=== PATIENT | female | born 1970 | race Caucasian/White ===

== ENCOUNTER 2023-10-31 22:02 | Inpatient (IN) | payer BC, SELFPAY ==
[2023-10-31 20:31] VITALS: BP 172/94
[2023-10-31 20:44] VITALS: BMI 40.4
[2023-10-31 20:49] LABS: % Basophils 0.6 % (0-2); % Immature Granulocytes 0.1 % (0-0.5); % Lymphocytes 29.8 % (20.5-51.1); % Neutrophils 62.5 % (42.2-75.2); Absolute Basophils 0.1 10^3/uL (0-0.2); Absolute Eosinophils 0.1 10^3/uL (0-0.7); Absolute Lymphocytes 2.3 10^3/uL (1.2-3.4); Absolute Monocytes 0.5 10^3/uL (0.1-0.6); Absolute Neutrophils 4.8 10^3/uL (1.4-6.5); Hematocrit 41.2 % (37.0-47.0); Hemoglobin 14.5 g/dL (12.0-16.0); Mean Corp Hgb Conc. 35.2 g/dL (33.0-37.0); Mean Corpuscular Hgb 29.7 pg (27.0-31.0); Mean Corpuscular Volume 84.3 fL (81.0-99.0); Mean Platelet Volume 11.1 fL (7.4-10.4); Nucleated Red Blood Cells % 0 %; Platelet Count 190 10^3/uL (130-400); Red Blood Cell Count 4.89 10^6/uL (4.20-5.40); Red Cell Dist. Width 13.8 % (11.5-14.5); White Blood Cell Count 7.7 10^3/uL (4.8-10.8)
--- NOTE | 2023-10-31 21:01 | ED.GENMED ---
History of Present Illness
General
Chief Complaint: Heart Rate Problem
Source: patient, records, spouse and family
Exam Limitations: none
Time Seen by Provider: 10/31/23 20:43
Nursing documentation reviewed up to this point in time: agreed with
Travel History
Have you had any contact with someone who has COVID-19?: No
Do you have any symptoms of coronavirus? Fever > 100 degrees, chills, cough, shortness of breath, sore throat, loss of taste or smell, muscle aches, or headache?: No
History of Present Illness
History of Present Illness:
Patient is a 53-year-old female with a history of V. tach and frequent PVCs during her stress test that led to a cardiac catheterization in May who presents with repeated episodes of feeling lightheaded and near syncopal with sitting up. This
started a few days ago and has gotten progressively worse. Patient feels fine when she is laying down. Patient denies any chest pain or shortness of breath. Patient becomes very diaphoretic. Patient denies any abdominal pain, nausea, vomiting,
diarrhea, melena or hematochezia. Patient had a cardiac catheterization constrain her echo is stress she had episodes of the above. Cardiac catheterization was unremarkable. Patient's EF is 60 to 65% by echocardiogram. It is theorized that this
started in February with a viral infection. Patient went on steroids but then had to come off of them and had issues after that time.
Past History
Past History
ED Past Medical History: Arrthythmia (Bigeminy, trigeminy, V. tach), Asthma and Other (breast ca)
ED Past Surgical History: Other (mastectomy bilateral)
Social History
Tobacco: Non-smoker
Alcohol: None
Personal:
Living: with family
Family History
Family History: Negative Diabetes or CAD
Review of Systems
Review of Systems
All Other Systems: ROS reviewed and negative except as documented in HPI and ROS
Constitutional: Reports no symptoms
EENT: Reports no symptoms
Respiratory: Reports no symptoms
Cardiac: Reports diaphoresis, palpitations and syncope (Near); Denies chest pain
ABD/GI: Reports no symptoms
: Reports no symptoms
Musculoskeletal: Reports no symptoms
Skin: Reports no symptoms
Neurological: Reports no symptoms
Hematologic/Lymphatic: Reports no symptoms
Phy Exam
Physical Exam
Physical Exam:
Physical Exam
General: No apparent distress, alert and appropriate, well nourished, well hydrated
HENT: Normocephalic, supple with no lymphadenopathy, no thyromegaly
Eyes: Clear sclera, conjuctiva without injection
Heart: Regular rhythm and bradycardic rate. No S3, S4. No murmur. No NVD
Lungs: No respiratory distress, no stridor, lung sounds clear and equal bilaterally
Abdomen: Soft, nontender, no organomegaly, BS good
Neuro: Alert and oriented x 3, CN II - XII intact, no motor focality
Skin: no rash
Psychiatric: well kept. interactive and cooperative
Extremities: No edema, cyanosis, tenderness, Good and equal peripheral pulses.
Scores
Heart Failure Risk
Heart Failure Risk Score: Not Applicable
Heart Score for Chest Pain Patients
STEMI patient?: Not applicable
Withdrawal Assessment of Alcohol
Withdrawal Assessment Completed?: Not applicable
Course
Orders/Labs/Results
Orders:
Orders
10/31/23 20:27
Electrocardiogram (*1) Urgent
Reason for Study: Syncope
EKG- Treatment ONCE
10/31/23 20:43
Cardiac Monitoring- Treatment ONCE
IV Insert/Care/Rem.- Treatment PRN
O2 Therapy [RESP] Urgent
Titrate/Wean O2 to maintain O2 sat greater than (%): 90
Special Instructions: Maintain sats >/=90%
Pulse Ox/spot Check [RESP] Urgent
Quantity: 1
Special Instructions: ON ROOM AIR
10/31/23 20:44
Complete Blood Count/With Diff Urgent
Comprehensive Metabolic Panel Urgent
TSH Reflex To Free T4 Urgent
Comment: ADDON
Troponin I Urgent
10/31/23 20:48
Add On- LAB Urgent
Tests Added?: TSH with reflex to t4
10/31/23 21:10
0.9% Sodium Chloride 1000 ml [Nss] 1,000 ml IV BOLUS
10/31/23 21:45
Admit/Transfer Patient As Directed
Co-Sign Provider:
Level of Care: Inpatient admission
Assign to:: IVU
Physician / Group: hospitalist
Diagnosis: symptomatic bradycardia
Reason for Hospitalization: symptomatic bradycardia
Expected length of stay greater than two midnights?: Yes
ELOS- Estimated Length of Stay in days: 3
I certify the patient meets the requirements for IP care: Yes
10/31/23 21:50
Code Status As Directed
Resuscitation Status: Full Code
Abnormal Lab Results
10/31/23
20:44
MPV 11.1 H fL
(7.4-10.4)
Chloride 109 H mmol/L
(98-107)
BUN 22 H mg/dl
(7-17)
Glucose 102 H mg/dl
(70-99)
10/31/23 20:44
10/31/23 20:44
Vital Signs
Initial and Last Documented VS:
Initial Vital Signs
Temp Pulse Resp BP Pulse Ox
98 F 64 18 172/94 98
10/31/23 20:31 10/31/23 20:31 10/31/23 20:31 10/31/23 20:31 10/31/23 20:31
Last Documented Vital Signs
Temp Pulse Resp BP Pulse Ox
98 F 64 18 172/94 98
10/31/23 20:31 10/31/23 20:31 10/31/23 20:31 10/31/23 20:31 10/31/23 20:31
*Radiology
Radiology exam reviewed: other (na)
*Pulse Oximetry
Patient hypoxic: no
*EKG
Interpreted by ED Provider?: Yes
EKG Intrepretation Date: 10/31/23
EKG Intrepretation Time: 21:08
Interpretation: abnormal
Comparison EKG: changes noted
Heart Rate: 54
Rate: bradycardiac
Rhythm: sinus
[place]: normal axis
Interval: normal interval
QRS Pattern: normal QRS
Ischemia: non-specific ST changes
*Sandblasting Supervisor Interpretation
Rate: bradycardiac
Interpretation: abnormal
Heart Rate: 52
Rhythm: sinus and PVC's
*Critical Care Note
Total Time (30-74mins, 75-104mins- exclusive of procedures): Not Applicable
ED Attending Note
-
Portions of this chart may have been created with voice recognition software.� Occasional wrong word or��sound alike� substitutions may have occurred due to the inherent limitations of voice recognition software.
Discharge Plan
Departure
Patient Disposition: Admit
Date of Disposition: 10/31/23
Time of Disposition: 21:09
Admit to: IVU
Admit to doctor: Hospitalist
Presentation/result/management discussed w/ accepting MD/DO: Making Department Preparer
Patient with high blood pressure during this ER visit?: No
Condition: Serious
Covid-19: Not Applicable
Discharge Problem:
Symptomatic bradycardia, Frequent PVCs
Interventions
Interventions:
*Risk Screen - Suicide Last Done: 10/31/23 20:54
*General Assessment Last Done: 10/31/23 20:47
*Neglect/Abuse Screening Last Done: 10/31/23 20:54
ED- Fall Risk Assessment Last Done: 10/31/23 20:54
*ED COVID-19 Vaccine History Last Done: 10/31/23 20:45
ED- Cardiac Assessment Last Done: 10/31/23 20:54
ED- Pulmonary Assessment Last Done: 10/31/23 20:54
[2023-10-31 21:04] LABS: ALT (SGPT) 22 U/L (0-35); AST (SGOT) 23 U/L (14-36); Albumin 4.5 g/dl (3.5-5.0); Alkaline Phosphatase 60 U/L (38-126); Blood Urea Nitrogen 22 mg/dl (7-17); Calcium 9.5 mg/dl (8.4-10.2); Carbon Dioxide 23 mmol/L (22-30); Chloride 109 mmol/L (98-107); Estimated Creatinine Clearance 112 ml/min; Glucose 102 mg/dl (70-99); Sodium 138 mmol/L (135-145); Total Bilirubin 0.6 mg/dl (0.2-1.3); Total Protein 7.1 g/dl (6.3-8.2); eGFR > 60.00
[2023-10-31 21:13] LABS: Troponin I < 0.012 ng/ml
--- NOTE | 2023-10-31 21:18 | CON.CAR ---
Consultation
Consultation Request
Date/Time Consultation Requested: October 31, 2023
Date/Time Consultation Performed: November 01, 2023
Requesting Provider: ER-Hospitalist
Performing Provider: Lilibeth
Reason for Consultation: DIzziness
Medical History
-
Chief Complaint: DIzziness
History of Present Illness:
53 yo female with extensive medical history including breast CA and bilateral mastectomy, prior left sided port placement which is removed. ELevated BMI. I have evaluated her in the past for AV block which is paroxysmal and typical exertional and
associated with dyspnea and lightheadedness. She has an echocardiogram with normal EF%. On treadmill stress testing she was having frequent ventricular ectopy and proceeded to cardiac catheterization which demonstrated no significant coronary
disease. Cardiac MRI without scar and normal EF%. We had discussed pacing at that time but fortunately she has improved and has not required permanent pacing. She likely has a positional or vagal component. I was called by my partner Dr. Lee
who told me she was heading to the ER with a HR in the 30's. 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
On presentation to the ER heart rate is 50 with 1:1 AV conduction. Elevated BUN/Cre ratio.
Admitted to hospitalist team and we are seeing in consult.
Over the past 3 months she is lost 25 pounds and is exercising daily. She did not eat or drink on Thursday and she was going from sitting to standing position all day while working. Dizzy and lightheaded with standing. During our conversation she
looked at the heart telemetry 7-8 times. She was checking an Apple Watch yesterday with a 'heart rate of 30. Overnight here heart rates have been in the 40s to 50s and sinus with sinus arrhythmia and with waking her heart rate went one-to-one at
90 bpm with occasional PVCs and then warming down Mobitz 1 type II AV block. She feels this as palpitations. She was seen when lying in bed. She tells me she drinks 4 to 6 glasses of water per day. Particular symptomatic with going up steps.
She was able to walk around [place] with 19,000 steps a day without symptoms.
Past Medical History
Past Medical History: Arrhythmias and Asthma
Past Surgical History: Other (bilateral mastectomy, left sided port (removed))
Social History
Tobacco: Non-Smoker
Alcohol: None
Drug: None
Personal:
Living: With Family
Employment: Employed
Family History
Family History: Reviewed & Not Pertinent
Allergies / Home Medications
Allergy/AdvReac Type Severity Reaction Status Date / Time
acetaminophen [From Vicodin] Allergy see comment Verified 06/19/23 09:19
hydrocodone bitartrate Allergy hallucinati Verified 11/08/13 08:21
[From Vicodin] ons
morphine Allergy hallucinati Verified 11/08/13 08:21
ons
sequential compression Allergy shortness Uncoded 11/08/13 08:18
sleeves of breath,
asthma,
rash
ALANIS anti embolism stockings Allergy shortness Uncoded 11/08/13 08:21
of breath,
asthma,
rash
Medication Instructions Recorded Confirmed Type
anastrozole 1 mg tablet (Arimidex) 1 mg PO DAILY 06/19/23 06/19/23 History
celecoxib 200 mg capsule (Celebrex) 200 mg PO DAILY 06/19/23 06/19/23 History
pregabalin 50 mg capsule (Lyrica) 50 mg PO HS 06/19/23 06/19/23 History
rosuvastatin 5 mg tablet (Crestor) 5 mg PO DAILY 06/19/23 06/19/23 History
Review of Systems
-
All other systems: Negative unless noted
Cardiac: Palpitations
Physical Exam
Vital Signs
Temp Pulse Resp BP Pulse Ox
98 F 64 18 172/94 98
10/31/23 20:31 10/31/23 20:31 10/31/23 20:31 10/31/23 20:31 10/31/23 20:31
Lab Results
10/31/23 20:44
10/31/23 20:44
Troponin I < 0.012 ng/ml 10/31/23 20:44
Physical Exam
General: Well Developed and Well Nourished
HEENT: Normocephalic and Anicteric
Respiratory: Clear
Cardiac: S1/S2 and Irregular Rhythm
Breast: Deferred by me
GI: Soft, Non Tender and Non Distended
Rectal: Deferred by Provider
Musculoskeletal: No Clubbing and No Cyanosis
Skin: Warm and Dry
Neuro: Awake, Alert and Oriented
Hematologic/Lymphatic: No Lymphadenopathy
Psych: Calm
Impression / Plan
-
Impression:
Bradycardia
Sinus arrhythmia
Mobitz 1 type II AV block
Vasovagal presyncope
PVC's
Vagal mediated dizziness
History of paroxysmal AV block-improved recently
History of NSVT
Elevated BMI
History of Breast CA
History of bilateral mastectomy
History of left sided port placement (removed)
Recommendations:
There is no current indication for permanent pacing
The mechanism of her presyncope is vasovagal
Would recommend outpatient 5-day Bardy Dx monitor which we will call and arrange
Aggressive hydration IV and p.o.
Sitting to edge of bed prior to standing
Counseled her that she is at risk for repetitive symptoms in the first 24 to 48 hours after the worst clinical symptoms which was yesterday.
Set expectations with patient regarding occasional symptoms upstairs and occasional lightheaded and dizziness particularly over the next 24 to 48 hours and that she should careful with activity over the next 1 to 2 days. Her hydration needs to
increase with electrolyte rich solution including Gatorade Powerade or liquid powders and she can have salt liberalization in her diet. I have no objection to discharge either later today or tomorrow if her symptoms are improving. There is no
evidence of significant pause on telemetry. I did ask her to check her Apple Watch less as sometimes this can drive anxiety related to the heart arrhythmia.
Data Reviewed
-
EKG: Tracing Personally Visualized and interpreted
Radiology: Image Personally Visualized and interpreted
Labs: Labs Reviewed by me
Old Records: Reviewed
[2023-10-31] MEDS: NSS 1000 IV ×2 (21:21→23:27)
--- NOTE | 2023-10-31 21:55 | HPS.HSE ---
Addendum entered and electronically signed by Zulma Ross DO 10/31/23 23:16:
The patient is seen and examined, and I have reviewed and discussed the patient with our DANDY OPERATOR, and reviewed and agree with the history and physical and assessment and plan of care as per below
HR 50s, otherwise VSS, AF
Cards: bradycardia, no m/r/g
Lungs CTA b/l
Neuro no focal deficits
Labs reviewed: BUN 22, Gluc 102, Cl 109
Mg and Phos are pending
TSH 2.57
Symptomatic bradycardia, several episodes of symptomatic near-syncope
Agree with IVU admission, IVF, Cardiology consultation appreciated
Hold Lyrica for now and address whether it can cause dysrhythmia
Original Note:
Family Physician
-
Family Physician: Josefina Granados
Chief Complaint
-
heart rate problem
History of Present Illness
Patient is a 53-year-old female with a history of V. tach and frequent PVCs during her stress test that led to a cardiac catheterization in May who presents today with repeated episodes of feeling lightheaded and near syncopal with sitting
up.� Symptoms started a few days ago and has gotten progressively worse.� She denies any chest pain or shortness of breath.� Patient denies any abdominal pain, nausea, vomiting, diarrhea, melena or hematochezia.� In May, she had an
echocardiogram with normal EF%. On treadmill stress testing she was having frequent ventricular ectopy and proceeded to cardiac catheterization which demonstrated no significant coronary disease. Fortunately she had improved and did not require
permanent pacing at that time.
Medical History
Past Medical History
Past Medical History: Reports Arrhythmia and Cancer (breast)
Past Surgical History: Reports Other (mastectomy b/l)
Social History
Tobacco: Non-smoker
Alcohol: None
Drug: None
Living: With Family
Employment: Employed
Family History
Family History: Not pertinent
Allergies / Home Medications
Allergies reflects when Allergies were last updated in [employer].
Home Medications with original date entered in [employer]
Allergy/Medication List:
Allergies
Allergy/AdvReac Type Severity Reaction Status Date / Time
acetaminophen [From Vicodin] Allergy see comment Verified 06/19/23 09:19
hydrocodone bitartrate Allergy hallucinati Verified 11/08/13 08:21
[From Vicodin] ons
morphine Allergy hallucinati Verified 11/08/13 08:21
ons
sequential compression Allergy shortness Uncoded 11/08/13 08:18
sleeves of breath,
asthma,
rash
ALANIS anti embolism stockings Allergy shortness Uncoded 11/08/13 08:21
of breath,
asthma,
rash
Home Medications
anastrozole 1 mg tablet (Arimidex) 1 mg PO DAILY 06/19/23
celecoxib 200 mg capsule (Celebrex) 200 mg PO DAILY 06/19/23
pregabalin 50 mg capsule (Lyrica) 50 mg PO HS 06/19/23
rosuvastatin 5 mg tablet (Crestor) 5 mg PO DAILY 06/19/23
Review of Systems
-
History Source: Patient
A 12 point ROS was completed and negative except as noted: Yes
Constitutional: Reports No Symptoms
EENT: Reports No Symptoms
Respiratory: Reports No Symptoms
Cardiac: Reports Palpitations and Syncope
Abdomen/GI: Reports No Symptoms
: Reports No Symptoms
Musculoskeletal: Reports No Symptoms
Skin: Reports No Symptoms
Neurological: Reports Dizzy
Endocrine: Reports No Symptoms
Hematologic/Lymphatic: Reports No Symptoms
Psych: Reports No Symptoms
Physical Exam
Vital Signs
Vital Signs
Temp Pulse Resp BP Pulse Ox
98 F 64 18 172/94 98
10/31/23 20:31 10/31/23 20:31 10/31/23 20:31 10/31/23 20:31 10/31/23 20:31
Physical Exam
General: Well Developed, Comfortable and Conversant
HEENT: NormoCephalic, Anicteric, Moist mucous membranes and Atraumatic
Respiratory: Clear
Cardiac: Regular Rhythm and Bradycardia
Breast: Deferred by me
GI: Soft, Non Tender and Non Distended
Rectal: Deferred by Provider
Genito-urinary: Deferred by me
Musculoskeletal: No Clubbing, No Cyanosis and No Edema
Skin: Warm and Dry
Neuro: Awake, Alert, Oriented and AO x 3
Psych: Calm and Intact Judgment/Insight
Laboratory Results
-
10/31/23 20:44
10/31/23 20:44
Laboratory Results
Total Bilirubin 0.6 mg/dl (0.2-1.3) 10/31/23 20:44
AST 23 U/L (14-36) 10/31/23 20:44
ALT 22 U/L (0-35) 10/31/23 20:44
Alkaline Phosphatase 60 U/L (38-126) 10/31/23 20:44
Troponin I < 0.012 ng/ml 10/31/23 20:44
Impression/Plan
-
IMPRESSION/PLAN:
Admit to IVU under Hospitalist service
#Syptomatic bradycardia
#History of paroxysmal AV block-improved recently
#History of NSVT
-Cardiology consult
-EF is 60 to 65% by echocardiogram from May
-Cardiac catheterization was unremarkable from May
-IVF
-NPO
#Chronic back pain
-Continue Lyrica
-Hold Celebrex
#s/p b/l Mastectomy
#Breast Ca
-stable
-left arm restriction
Full Code
DVT Prophylaxis: SQH
[2023-10-31 22:00] VITALS: BP 140/75
[2023-10-31 22:14] LABS: TSH Reflex To Free T4 2.57 uIU/ml (0.47-4.68)
[2023-10-31 22:50] VITALS: BP 143/128
[2023-10-31 22:53] VITALS: BP 143/79
[2023-10-31 23:35] LABS: Magnesium 2.2 mg/dl (1.6-2.3); Phosphorus 3.3 mg/dl (2.5-4.5)
[2023-11-01] VITALS (7 sets, daily range): BP systolic 118–164; BP diastolic 67–96; BMI 39.8
--- NOTE | 2023-11-01 01:07 | PTCARENOTE ---
Pt admitted into 2251- transferred from bed- to bed w/o ambulation. 2nd degree HB type 2. Hr down to 35 at the lowest. she notes when her HR drops with a flushed feeling- and lightheadedness. Bedrest at this time. NSS @ 125 running as documented-
through a R ac. POC discussed- pt verbalized understanding. L upper extremity restrict band placed.
[2023-11-01 04:49] LABS: % Basophils 0.6 % (0-2); % Eosinophils 1.3 % (0-6); % Lymphocytes 34.8 % (20.5-51.1); % Monocytes 5.5 % (1.7-9.3); % Neutrophils 57.8 % (42.2-75.2); Absolute Eosinophils 0.1 10^3/uL (0-0.7); Absolute Lymphocytes 2.2 10^3/uL (1.2-3.4); Absolute Monocytes 0.4 10^3/uL (0.1-0.6); Absolute Neutrophils 3.7 10^3/uL (1.4-6.5); Hemoglobin 12.8 g/dL (12.0-16.0); Mean Corp Hgb Conc. 34.6 g/dL (33.0-37.0); Mean Corpuscular Volume 86.9 fL (81.0-99.0); Mean Platelet Volume 11.4 fL (7.4-10.4); Nucleated Red Blood Cells % 0 %; Platelet Count 170 10^3/uL (130-400); Red Blood Cell Count 4.26 10^6/uL (4.20-5.40); Red Cell Dist. Width 13.8 % (11.5-14.5); White Blood Cell Count 6.3 10^3/uL (4.8-10.8)
[2023-11-01 05:12] LABS: ALT (SGPT) 19 U/L (0-35); AST (SGOT) 21 U/L (14-36); Albumin 3.5 g/dl (3.5-5.0); Alkaline Phosphatase 45 U/L (38-126); Blood Urea Nitrogen 18 mg/dl (7-17); Calcium 9.1 mg/dl (8.4-10.2); Carbon Dioxide 21 mmol/L (22-30); Chloride 110 mmol/L (98-107); Estimated Creatinine Clearance > 125 ml/min; Glucose 101 mg/dl (70-99); Magnesium 2.2 mg/dl (1.6-2.3); Potassium 3.9 mmol/L (3.5-5.1); Sodium 140 mmol/L (135-145); Total Bilirubin 0.7 mg/dl (0.2-1.3); Total Protein 5.9 g/dl (6.3-8.2); eGFR > 60.00
[2023-11-01] MEDS: NSS 1000 IV ×3 (07:21→17:03)
[2023-11-01] MEDS: CRESTOR 5 MG PO (09:26)
--- NOTE | 2023-11-01 09:37 | W.PN.HOSP.TC ---
Today's Communication/Plan
-
advance diet and activity
check EKG
Assessment / Plan
Assessment / Plan
pt is a 53 year old female
Symptomatic bradycardia with History of paroxysmal AV block-improved recently and History of NSVT--apprec cards--no indication for pacemaker per cards--advance diet and ambulate--was told to drink electrolyte rich fluids
Chronic back pain--Continue Lyrica--Hold Celebrex
Hx of breast cancer --s/p b/l Mastectomy--left arm restriction
code status --Full Code
DVT Prophylaxis: SQH
Anticipated Discharge: Within 24 hours
Subjective/Interval History
-
Date of Service: November 01, 2023
Patient admitted frustrated and cannot understand why pacemaker not recommended
Tells me she has been told to 'drink more electrolytes and eat more'
She states that she drinks more water than anyone she knows.
Objective Data
-
Labs:
Laboratory Results
11/01/23
04:23
WBC 6.3
Hgb 12.8
Hct 37.0
Plt Count 170
Sodium 140
Potassium 3.9
Chloride 110 H
Carbon Dioxide 21 L
BUN 18 H
Creatinine 0.7
Glucose 101 H
Calcium 9.1
Total Bilirubin 0.7
AST 21
ALT 19
Alkaline Phosphatase 45
Vital Signs:
max temp for 24 hours
10/31/23
23:00
Temp 98.2 F
Vital Signs
Temp Pulse Resp BP Pulse Ox
98.1 F 54 20 130/76 97
11/01/23 07:34 11/01/23 08:00 11/01/23 07:34 11/01/23 07:37 11/01/23 07:37
Review of Systems
-
All other systems: Reviewed and negative
Physical Exam
-
General: Well Developed, Well Nourished, No Apparent Distress and Obese
HEENT: Normocephalic and Atraumatic; Negative Oxygen
Respiratory: Clear to Auscultation; Negative Wheezes, Rales, Rhonchi or Crackles
Cardiac: Regular Rhythm, S1/S2 and Bradycardic; Negative Murmur
GI: Soft, Nontender, Nondistended and Normal Bowel Sounds
Musculoskeletal: No Clubbing, No Cyanosis and No Edema
Skin: Warm
Neuro: Awake
Psych: Calm
--- NOTE | 2023-11-01 09:58 | PTCARENOTE ---
Received patient this morning resting in bed. Seen by cardiology and now hospitalist. Patient remains in SB, states she has intermittent episodes where her HR drops and she feels a 'shocky' feeling and then it returns to a higher rate. Seen by
Priya, regular diet ordered and assisted the patient oob the first time. Aware to sit at the side of the bed prior to getting up, some mild dizziness initially but HR in the 70's while oob. Patient refusing her sq heparin, doing leg pumps and
ambulating in the room now that she is able to be oob.
--- NOTE | 2023-11-01 11:10 | PTCARENOTE ---
Patient lying in bed visiting with her family. Telemetry alarmed with HR of 33. In to check patient and inquired about her symptoms. Patient states she gets a 'shocky' feeling, followed by a hot flash and then feels lightheaded and dizzy, like she
is going to 'pass out', when this occurs. She lowered her head down in the bed and it subsided.
--- NOTE | 2023-11-01 13:00 | PTCARENOTE ---
/children in visiting, tele alarmed with HR of 33. When I checked on the patient she was lying in bed. Stated she notices these episodes occur more often while lying on her right side. Said she was finishing eating, felt palpitations/feelings
of a hot flash & felt lightheaded and dizzy. Lies flat in bed and they resolve and HR returns to normal. Very anxious, asking me 'what's wrong with me'. Appears very frustrated, requested that Dr. Mcelroy telephone her who is in the room
and has questions. Message given to Dr. Mcelroy along with the patient's complaints/symptoms and VS. No further orders from Dr. Mcelroy, will continue IV hydration and monitor. Dr. Mcelroy telephoned the patient and spoke to him and the
family.
--- NOTE | 2023-11-01 14:19 | W.PN.UPDATE ---
Update Note
Progress Note Update
26 minutes spent by phone with patient, , daughter, and sister who is a postage machine operator. nursing communicated that patient anxious and frustrated via tiger text and that she is still feeling poorly. i did communicate with patient this am that
she may continue to feel poorly for a few days and that my diagnosis is vasovagal presyncope. she has this in the background of high vagal tone, sinus bradycardia, sinus arrhythmia, occasional mobitz 1 type 2 AV block at rest which improves markedly
with exercise. she did not eat or drink much on thursday during work and was changing sitting to standing all day. recent significant weight loss. i did communicate to patient this morning that i do not think she would be better with pacing as the
presyncope correlates more with change in position rather than the heart rate.
I spoke with patient and family earlier and took time to answer all questions. They are asking consistently about pacing. I communicated that there are longterm downsides of pacing and will not necessarily fix or ameliorate her symptoms. I again
reiterated my presumptive diagnosis of vasovagal syncope and treatment plan of IV hydration, holding lyrica, behavioral training to sit at edge of bed for minutes before standing, activity recommendations, expectations and trends for symptoms, and
temporal nature of vasovagal symptoms. I also communicated that I will request a second opinion with my partner Dr. Blackwell tomorrow and will leave with clear diet in case he supports a pacemaker implant tomorrow. I also encouraged additional
opinion with outside rn discharge of their choosing if they want.
[2023-11-02] MEDS: NSS 1000 IV (01:00)
--- NOTE | 2023-11-02 03:45 | PTCARENOTE ---
Assumed care of patient at change of shift w/ family at bedside. Patient reports when she elevates her HOB at times that she becomes lightheaded/dizzy, and feels heart palpitations. These episodes are intermittent and resolve quickly. BP stable.
Tele monitor shows that the patients rhythm goes in and out of sinus bradycardia w/ PACs and second degree Type 2. HR in the 30-60's at rest. Patient ambulates in room w/out difficulties and denies any dizziness. Pt denies any pain or SOB. Patient
aware of POC, call wyatt within reach.
[2023-11-02 04:56] VITALS: BP 149/95
[2023-11-02] MEDS: TYLENOL 650 MG PO (04:59)
--- NOTE | 2023-11-02 09:01 | W.PN.HOSP.TC ---
Today's Communication/Plan
-
DC
Assessment / Plan
Assessment / Plan
pt is a 53 year old female
Symptomatic bradycardia
Sinus arrhythmia
Mobitz 1 type 2 block transient
Presyncope symptoms suggestive of vasovagal
Tele monitor without significant blocks or pauses.
No syncope.
Appreciate cardiology input - no indication for pacemaker.
Pt encouraged adequate hydration ( on dietary intervtentions for wt loss)
To take time while changing position from recumbency to standing up
Follow with Cards as OP
Chronic back pain--Continue Lyrica- cw Celebrex
Hx of breast cancer --s/p b/l Mastectomy--left arm restriction
code status --Full Code
DVT Prophylaxis: SQH
DW Cards -ok for dc from cardiology standpoint
Anticipated Discharge: Today
Subjective/Interval History
-
Date of Service: November 02, 2023
No syncope or further presyncope.
Up and about going to the bathroom.
Objective Data
-
Vital Signs:
Vital Signs
Temp Pulse Resp BP Pulse Ox
97.7 F 56 20 149/95 96
11/02/23 04:58 11/02/23 04:56 11/02/23 04:58 11/02/23 04:56 11/02/23 04:58
I&O
11/01/23 11/02/23 11/03/23
06:59 06:59 06:59
Intake Total 3950 / 3950
Balance 3950 / 3950
Review of Systems
-
Constitutional: Denies Fever
Respiratory: Denies Trouble Breathing
Cardiac: Denies Chest Pain
Abdomen/GI: Denies Nausea or Vomiting
Physical Exam
-
General: No Apparent Distress and Comfortable
HEENT: Moist Mucous Membranes
Cardiac: Regular Rhythm
Neuro: AO x 3
Psych: Calm
--- NOTE | 2023-11-02 09:09 | W.DS.TRANS ---
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
-
Discharge Instructions:
Discharge Diagnosis/Procedures Presyncope suspected vasovagal
Diet Regular
Activity As tolerated
Driving Restrictions As prior to admission
Bathing Restrictions None
Instructions:
Stand-Alone Forms:
Changes to Home Medications: No
Discharge Medications:
DC Medications w/original date entered in [facility]
anastrozole 1 mg tablet (Arimidex) 1 mg PO DAILY Cancer 06/19/23
celecoxib 200 mg capsule (Celebrex) 200 mg PO BID Pain 06/19/23
pregabalin 50 mg capsule (Lyrica) 100 mg PO BID Neurological Condition 06/19/23
rosuvastatin 5 mg tablet (Crestor) 5 mg PO QPM High Cholesterol 06/19/23
Home Medication Changes
Pending Results: No
--- NOTE | 2023-11-02 09:10 | W.DCSUMMARY ---
Discharge Summary
Discharge Data
Date of Admission: 10/31/23
Date of Discharge: 11/02/23
-
Pending Results: No
Hospital Course
Primary diagnosis:
Presyncope suspected vasovagal.
Sinus bradycardia
Sinus arrhythmia
Transient Mobitz 1 type II Atrioventricular block
Secondary diagnosis:
History of breast cancer s/p bilateral mastectomy
Hospital course:
Presented with dizziness. Along with that she was noted to be bradycardic so presented to the ER. She was noted to be in sinus bradycardia with 1 is to 1 AV conduction with 1 EKG showing Mobitz type II AV block.
She had an elevated BUN. She is on a diet for weight loss and has lost 25 pounds. She apparently did not drink or eat much on Thursday and she was sitting and standing position all day while working. She felt dizzy lightheaded with standing.
She was evaluated in the past by EP for AV block which is paroxysmal and typical exertional associated dizziness and lightheadedness. She had extensive cardiac workup including cardiac catheterization and MRI of the myocardium which were negative.
She was given IV fluids and was monitored on the telemetry without significant pauses or AV blocks. She got opininon from 2 EP physicians and that there was no indication for pacemaker.
Once stable from cardiac standpoint was discharged home.
She was advised keep yourself adequately hydrated and also to take precautions when she is getting up from lying down to sitting or standing.
Consultants on board:
Cardiology Dr Mcelroy
Discharge Plan
-
Patient Disposition: Home (Routine Discharge)
Discharge Diagnosis/Procedures: Presyncope suspected vasovagal
Diet: Regular
Activity: As tolerated
Driving Restrictions: As prior to admission
Bathing Restrictions: None
Referrals:
Josefina Granados MD [Family Provider] -
Sam Burgos MD [Active] - (As planned before)
Prescriptions:
Continued
celecoxib [Celebrex] 200 mg Capsule
200 mg PO BID
anastrozole [Arimidex] 1 mg Tablet
1 mg PO DAILY
rosuvastatin [Crestor] 5 mg Tablet
5 mg PO QPM
pregabalin [Lyrica] 50 mg Capsule
100 mg PO BID
Discharge Orders:
Discharge Patient (As Directed); Ordered 11/02/23
Ordered By: Ryne Reyes
Care Plan Goals
Care Plan Goals:
Problem: Readiness for enhanced knowledge related to diagnosis and treatment plan
Goal: Understand your diagnosis and treatment plan needs, including medications if applicable.
Instructions: Know your diagnosis, underlying causes and treatment plan options, including medications if applicable. Consult with your health care team to learn about your diagnosis and treatment plan, including medications if applicable.
[2023-11-02] MEDS: CRESTOR 5 MG PO (09:15)
[2023-11-02 09:18] VITALS: BP 150/78
--- NOTE | 2023-11-02 11:33 | PTCARENOTE ---
Patient seen by Dr. Blackwell and Dr. Reyes and Dr. Burgos. Patient has decided to be discharged, does not want to pursue pacer at this time and would rather go home and see if symptoms subside. Patient discharged home with her .
--- NOTE | 2023-11-02 11:43 | CM ---
Chart reviewed. Patient is independent of ADLS, still works, lives with her in a 2 STH, 0 DME. Patient currently with no discharge needs. Plan is for the patient to return home.
--- NOTE | 2023-11-02 13:33 | W.PN.CARDCBS ---
Today's Communication / Plan
-
Stable cardiology status for discharge
Impression / Plan
-
Impression:
Bradycardia
Sinus arrhythmia
Mobitz 1 type II AV block
Vasovagal presyncope
PVC's
Vagal mediated dizziness
History of paroxysmal AV block-improved recently
History of NSVT
Elevated BMI
History of Breast CA
History of bilateral mastectomy
History of left sided port placement (removed)
Recommendations:
Stable cardiology status for discharge
Continue to hydrate is much as possible and avoid prolonged standing or skipping meals
Discussed with EP earlier today and patient declined pacemaker which is appropriate
Reschedule appointment for our office which was originally scheduled for 11/03
Discussed with patient in detail for 25 minutes.
Discussed with primary service
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
Subjective
Date of Service: November 02, 2023
No complaints
Objective
Labs:
11/01/23 04:23
11/01/23 04:23
Labs
Hgb 12.8 g/dL (12.0-16.0) 11/01/23 04:23
Hct 37.0 % (37.0-47.0) 11/01/23 04:23
Plt Count 170 10^3/uL (130-400) 11/01/23 04:23
Sodium 140 mmol/L (135-145) 11/01/23 04:23
Potassium 3.9 mmol/L (3.5-5.1) 11/01/23 04:23
BUN 18 mg/dl (7-17) H 11/01/23 04:23
Creatinine 0.7 mg/dL (0.6-1.0) 11/01/23 04:23
Glucose 101 mg/dl (70-99) H 11/01/23 04:23
Troponins
10/31/23
20:44
Troponin I < 0.012
Vital Signs and I&O:
Vital Signs
Temp Pulse Resp BP Pulse Ox
98.5 F 39 20 150/78 98
11/02/23 09:25 11/02/23 09:18 11/02/23 09:25 11/02/23 09:18 11/02/23 09:25
Vital Signs
Temp Pulse Resp BP Pulse Ox
98.5 F 39 20 150/78 98
11/02/23 09:25 11/02/23 09:18 11/02/23 09:25 11/02/23 09:18 11/02/23 09:25
Intake & Output
10/31/23 11/01/23 11/02/23 11/03/23
06:59 06:59 06:59 06:59
Intake Total 3950 / 3950 480 / 480
Balance 3950 / 3950 480 / 480
Physical Exam
Physical Exam
General: Well developed, well nourished in NAD.
--- NOTE | 2023-11-03 13:15 | PN.CDI ---
CDI
- -
CDI:
Physician Documentation Request
Admit Date: 10/31/23 22:02
Dear Doctor Eric,
Please review the following and provide your response in the progress notes.
Clinical Indicators:
Height: 6ft
Weight: 297lbs
BMI: 40.4
- 2/5 PN 'Mobitz 1 type 2 block transient...Presyncope symptoms suggestive of vasovagal'
If possible, please provide an associated diagnosis related to the abnormal BMI, such as:
Morbid obesity duet o excess calories
BMI is not significant
Other
Use of terms such as suspected, likely, concern for, or probable (associated with a specific diagnosis that is being evaluated, monitored, or treated as if it exists) are acceptable and can be coded in the inpatient setting, when documented at the
time of discharge.
Thank you,
Darcie Aguilar RN
CDI Specialist
Please use your independent medical judgment in providing your response.
== END 2023-11-02 11:03 | disposition home or self-care (01) | DRG 312 ==
LOC: IVU 22:02
PROVIDERS: Nurse Practitioner; ADMITTING PHYSICIAN Internal Medicine; ATTENDING PHYSICIAN Internal Medicine; CONSULT PHYSICIAN Internal Medicine Cardiovascular Disease; EMERGENCY PHYSICIAN Emergency Medicine; FAMILY PHYSICIAN Internal Medicine
DX: R55 Syncope and collapse (principal); R00.1 Bradycardia, unspecified; I44.1 Atrioventricular block, second degree; R42 Dizziness and giddiness; R61 Generalized hyperhidrosis; G89.29 Other chronic pain; M54.9 Dorsalgia, unspecified; J45.909 Unspecified asthma, uncomplicated; Z90.13 Acquired absence of bilateral breasts and nipples; Z85.3 Personal history of malignant neoplasm of breast; Z88.5 Allergy status to narcotic agent; Z79.1 Long term (current) use of non-steroidal anti-inflammatories (NSAID)
CPT/HCPCS: 80053; 83735; 84100; 84443; 84484; 85025; 93005; 96360; 99284

== ENCOUNTER → 2023-12-25 10:10 | Outpatient (REF) | payer BC, SELFPAY ==
[2023-12-25 11:00] LABS: % Basophils 0.6 % (0-2); % Eosinophils 1.6 % (0-6); % Immature Granulocytes 0.3 % (0-0.5); % Lymphocytes 27.2 % (20.5-51.1); % Monocytes 5.5 % (1.7-9.3); % Neutrophils 64.8 % (42.2-75.2); Absolute Eosinophils 0.1 10^3/uL (0-0.7); Absolute Lymphocytes 1.9 10^3/uL (1.2-3.4); Absolute Monocytes 0.4 10^3/uL (0.1-0.6); Absolute Neutrophils 4.5 10^3/uL (1.4-6.5); Hematocrit 41.8 % (37.0-47.0); Hemoglobin 13.9 g/dL (12.0-16.0); Mean Corp Hgb Conc. 33.3 g/dL (33.0-37.0); Mean Corpuscular Hgb 29.9 pg (27.0-31.0); Mean Corpuscular Volume 89.9 fL (81.0-99.0); Mean Platelet Volume 10.6 fL (7.4-10.4); Nucleated Red Blood Cells % 0 %; Platelet Count 205 10^3/uL (130-400); Red Blood Cell Count 4.65 10^6/uL (4.20-5.40); Red Cell Dist. Width 14.6 % (11.5-14.5)
[2023-12-25 12:02] LABS: ALT (SGPT) 18 U/L (0-35); AST (SGOT) 19 U/L (14-36); Albumin 4.8 g/dl (3.5-5.0); Alkaline Phosphatase 55 U/L (38-126); Blood Urea Nitrogen 20 mg/dl (7-17); Calcium 10.2 mg/dl (8.4-10.2); Carbon Dioxide 26 mmol/L (22-30); Chloride 102 mmol/L (98-107); Glucose 107 mg/dl (70-99); HDL Cholesterol 83 mg/dl; LDL Cholesterol, Calculated 105 mg/dl; Potassium 4.7 mmol/L (3.5-5.1); Sodium 138 mmol/L (135-145); Total Bilirubin 0.6 mg/dl (0.2-1.3); Total Cholesterol 211 mg/dl (50-199); Total Protein 7.5 g/dl (6.3-8.2); Triglyceride 117 mg/dl (10-149); Very Low Density Lipoprotein 23 mg/dl (0-30); eGFR > 60.00
[2023-12-25 12:16] LABS: Vitamin D, 25-OH*** 47.1 ng/mL (30-80)
[2023-12-25 12:30] LABS: TSH Reflex To Free T4 1.39 uIU/ml (0.47-4.68)
[2023-12-25 13:05] LABS: Folate 8.9 ng/ml (2.76-20); Vitamin B12 328 pg/ml (239-931)
== END ==
LOC: REG 10:10
PROVIDERS: ATTENDING PHYSICIAN Internal Medicine
DX: R51.9 Headache, unspecified (principal); R03.0 Elevated blood-pressure reading, without diagnosis of hypertension; I51.7 Cardiomegaly; E55.9 Vitamin D deficiency, unspecified
CPT/HCPCS: 36415; 80053; 80061; 82306; 82607; 82746; 84443; 85025

== ENCOUNTER → 2024-01-18 09:41 | Outpatient (REF) | payer BC, SELFPAY | LOC: HWRAD 09:41 | PROVIDERS: ATTENDING PHYSICIAN Internal Medicine Hematology & Oncology; FAMILY PHYSICIAN Internal Medicine | DX: C50.212 Malignant neoplasm of upper-inner quadrant of left female breast (principal) | CPT/HCPCS: 70491; 71260; Q9967 ==

== ENCOUNTER 2024-04-12 10:09 | Outpatient (RCR) | payer BC, SELFPAY | END 2024-04-12 23:59 | disposition home or self-care (01) | LOC: RPT 10:09 | PROVIDERS: ATTENDING PHYSICIAN Physician Assistant Surgical; FAMILY PHYSICIAN Internal Medicine | DX: M19.011 Primary osteoarthritis, right shoulder (principal); M75.81 Other shoulder lesions, right shoulder; M54.12 Radiculopathy, cervical region; Z73.6 Limitation of activities due to disability | CPT/HCPCS: 97010; 97110; 97112; 97140; 97162 ==

== ENCOUNTER → 2024-05-04 09:00 | Outpatient (REF) | payer BC, SELFPAY ==
[2024-05-04 09:56] LABS: % Basophils 0.7 % (0-2); % Immature Granulocytes 0.2 % (0-0.5); % Lymphocytes 29.2 % (20.5-51.1); % Monocytes 6.5 % (1.7-9.3); % Neutrophils 60.4 % (42.2-75.2); Absolute Eosinophils 0.2 10^3/uL (0-0.7); Absolute Lymphocytes 1.8 10^3/uL (1.2-3.4); Absolute Monocytes 0.4 10^3/uL (0.1-0.6); Absolute Neutrophils 3.6 10^3/uL (1.4-6.5); Hematocrit 39.3 % (37.0-47.0); Hemoglobin 13.4 g/dL (12.0-16.0); Mean Corp Hgb Conc. 34.1 g/dL (33.0-37.0); Mean Corpuscular Hgb 29.9 pg (27.0-31.0); Mean Corpuscular Volume 87.7 fL (81.0-99.0); Mean Platelet Volume 10.4 fL (7.4-10.4); Nucleated Red Blood Cells % 0 %; Platelet Count 209 10^3/uL (130-400); Red Blood Cell Count 4.48 10^6/uL (4.20-5.40); Red Cell Dist. Width 13.9 % (11.5-14.5)
[2024-05-04 11:17] LABS: NT-proBNP 43.5 pg/ml
[2024-05-04 11:20] LABS: ALT (SGPT) 17 U/L (0-35); AST (SGOT) 22 U/L (14-36); Albumin 4.5 g/dl (3.5-5.0); Alkaline Phosphatase 55 U/L (38-126); Blood Urea Nitrogen 25 mg/dl (7-17); Calcium 9.7 mg/dl (8.4-10.2); Carbon Dioxide 24 mmol/L (22-30); Chloride 107 mmol/L (98-107); Glucose 101 mg/dl (70-99); HDL Cholesterol 66 mg/dl; LDL Cholesterol, Calculated 188 mg/dl; Potassium 4.7 mmol/L (3.5-5.1); Sodium 139 mmol/L (135-145); Total Bilirubin 0.6 mg/dl (0.2-1.3); Total Cholesterol 288 mg/dl (50-199); Total Protein 6.9 g/dl (6.3-8.2); Triglyceride 171 mg/dl (10-149); Very Low Density Lipoprotein 34 mg/dl (0-30); eGFR > 60.00
== END ==
LOC: REG 09:00
PROVIDERS: ATTENDING PHYSICIAN Nurse Practitioner; FAMILY PHYSICIAN Internal Medicine
DX: I10 Essential (primary) hypertension (principal); J45.909 Unspecified asthma, uncomplicated; R07.89 Other chest pain
CPT/HCPCS: 36415; 80053; 80061; 83735; 83880; 85025

== ENCOUNTER → 2024-05-09 13:00 | Outpatient (REF) | payer BC, SELFPAY | LOC: REG 13:00 | PROVIDERS: ATTENDING PHYSICIAN Nurse Practitioner; FAMILY PHYSICIAN Internal Medicine | DX: I44.30 Unspecified atrioventricular block (principal) | CPT/HCPCS: 36415; 86666; 86753; 86757; 87015; 87207 ==

== ENCOUNTER 2024-05-20 14:05 | Outpatient (RCR) | payer BC, SELFPAY | END 2024-05-26 10:26 | disposition home or self-care (01) | LOC: RPT 14:05 | PROVIDERS: ATTENDING PHYSICIAN Physician Assistant Surgical; FAMILY PHYSICIAN Internal Medicine | DX: M19.011 Primary osteoarthritis, right shoulder (principal); M54.12 Radiculopathy, cervical region; Z73.6 Limitation of activities due to disability | CPT/HCPCS: 97010; 97110; 97140 ==

== ENCOUNTER 2024-06-01 09:27 | Day surgery (SDC) | payer BC, SELFPAY ==
[2024-06-01] VITALS (20 sets, daily range): BP systolic 106–189; BP diastolic 68–129; BMI 43.0
[2024-06-01] MEDS: ANCEF 5 IV ×2 (11:08→17:55)
--- NOTE | 2024-06-01 12:25 | ITS.CL.PACE ---
Telescope Repairer - Pacemaker Implant
Pacemaker Implant
Procedure Report:
Date of Procedure: 06/01/2024
Patient : 1970
Procedure: Pacemaker Implantation.
Indication: Paroxysmal complete heart block associated with near syncope
�
Implants:
Pulse Generator: Medtronic; Model# W1 DR 01; SN: [id number] [ ] H.
RA Lead: Medtronic; Model# 4574; SN: [id number]
RV Lead: Medtronic; Model# 4074; SN: [id number]
�
Technique: A time out was performed. The procedure site was identified. The patient was anesthetized by the anesthesia service. Preoperative sedation was administered. The patient was prepped and draped in the usual fashion. Local anesthetic was
applied to the left prepectoral subcutaneous tissue. A 3 inch incision was made 2.5 inches below the left clavicle. A subcutaneous pocket was created with blunt and sharp dissection and hemostasis controlled with Bovie cautery. The left axillary
vein was accessed within the pocket without difficulty but was relatively steep. Hemostasis was excellent. The leads were introduced with 7 Fr hemostatic peel away introducer sheaths. The ventricular lead was placed at the right ventricular apex.
The atrial lead was placed
in the right atrial appendage. 10 volt pacing did not capture the diaphragm. The leads were secured to the pectoralis muscle and fascia. The leads were appropriately attached to the device. The pocket was irrigated with antibiotic solution. We took
great care to avoid the left-sided implant pocket. The device and leads were placed in the pocket. The incision was closed in three layers with absorbable suture. The estimated blood loss was minimal. There were no complications.��
�
Lead Analysis:
RA lead: P: 3 mV; Threshold: 1.0 V @ 0.5��ms; Impedance: 680 ohms.
RV lead: R: 8 mV; Threshold: 0.5 V @ 0.5��ms; Impedance: 1180 ohms.
�
Final Programming: AAIR�DDDR 50-130 beats minute
�
Conclusion: Uncomplicated Medtronic pacemaker implant.
�
Recommendation: Routine post pacemaker care.
�
[2024-06-01] MEDS: TOPROL XL 12.5 MG PO (14:34)
[2024-06-01] MEDS: ROXICODONE 5 MG PO (14:58)
[2024-06-01] MEDS: NORVASC 5 MG PO (15:18)
--- NOTE | 2024-06-01 17:09 | PTCARENOTE ---
Received the patient from the cathead worker in a stretcher. The patient is aaox3, vss, 98% on RA. NSR noted on the monitor. She ambulated to the chair with minimal assist. Left chest wall Aquacel dressing c/d/i. A left arm immobilizer is in place. I
instructed the patient on her activity restrictions. Call wyatt is within reach. Her family is at her bedside.
[2024-06-01] MEDS: FLUSH (NSS) 2 FLUSH IV ×2 (17:55→18:16)
[2024-06-01] MEDS: ZOFRAN 4 MG IV (18:16)
[2024-06-01] MEDS: TYLENOL 650 MG PO ×2 (19:23→23:48)
--- NOTE | 2024-06-01 19:28 | PTCARENOTE ---
The patient complained of an 8/10 left chest pain. I attempted to give her Tylenol however she became extremely nauseous. I reached out to Dr. Chen and he ordered Zofran for her. Zofran given as ordered. Her nausea subsided and Tylenol was given
for her pain.
[2024-06-01] MEDS: MELATONIN 10 MG PO (21:56)
[2024-06-01] MEDS: NEURONTIN 200 MG PO (21:56)
--- NOTE | 2024-06-02 02:20 | PTCARENOTE ---
Pt received start of shift, HR SR w/ occasional A-pacing and PVCs. PRN tylenol administered for pain at incision site - see MAR. On routine rounds, pt appeared to be extremely anxious. Pt states they felt as if they were having a panic attack,
stayed w/ pt until calmed. CVPA Tsilina at bedside, pt refusing any anti-anxiety medications for the time being, stated they will let RN know if they feel they need it later. Pt denies any pain outside of incision site, SOB, or
lightheadedness/dizziness. Informed to notify RN if any changes, call wyatt within reach.
[2024-06-02] MEDS: ANCEF 5 IV (03:01)
[2024-06-02 03:04] VITALS: BP 141/92
[2024-06-02] MEDS: TYLENOL 650 MG PO ×2 (03:50→08:08)
[2024-06-02 03:58] LABS: Hematocrit 37.4 % (37.0-47.0); Hemoglobin 12.8 g/dL (12.0-16.0); Mean Corp Hgb Conc. 34.2 g/dL (33.0-37.0); Mean Corpuscular Hgb 29.4 pg (27.0-31.0); Mean Platelet Volume 10.4 fL (7.4-10.4); Platelet Count 218 10^3/uL (130-400); Red Blood Cell Count 4.35 10^6/uL (4.20-5.40); Red Cell Dist. Width 13.5 % (11.5-14.5); White Blood Cell Count 7.5 10^3/uL (4.8-10.8)
[2024-06-02 04:14] LABS: Blood Urea Nitrogen 16 mg/dl (7-17); Calcium 10.1 mg/dl (8.4-10.2); Carbon Dioxide 25 mmol/L (22-30); Chloride 106 mmol/L (98-107); Estimated Creatinine Clearance 108 ml/min; Glucose 96 mg/dl (70-99); Magnesium 2.1 mg/dl (1.6-2.3); Potassium 4.7 mmol/L (3.5-5.1); Sodium 144 mmol/L (135-145); eGFR > 60.00
[2024-06-02 06:47] VITALS: BP 139/85
[2024-06-02] MEDS: TOPROL XL 25 MG PO (08:08)
[2024-06-02] MEDS: NORVASC 5 MG PO (08:08)
--- NOTE | 2024-06-02 08:54 | W.PN.CARDCBS ---
Addendum entered and electronically signed by Ezequiel Mcelroy MD 06/02/24 10:14:
Site clean dry and intact
Chest x-ray reviewed with stable RA and RV lead positions
Less PVCs on metoprolol
Less pain this morning and no nausea
Appropriate atrial sensing and pacing and ventricular sensing on telemetry
Exam per [facility] note
Impression:
Symptomatic Paroxysmal complete heart block
near syncope
PVC's/NSVT
HLD
Breast cancer prior b/l mastectomy 2008, chemo/XRT
recurrent L neck cancer 2012 XRT
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
Anxiety
LDD
Morbid Obesity
Plan:
post DC PPM Medtronic 06/01, mild inc pain
site stable
tele occasionally Apaced
CXR no PTX, leads in position
PVC's will initiate Toprol 25mg daily
HTN - continue amlodipine, monitor bp at home with metoprolol
Activity restrictions reviewed
inc check 1 week
home today
Original Note:
Today's Communication / Plan
-
post DC PPM
stable for d/c home
Impression / Plan
-
PCP: EVERARDO Hoffman
CDY: Sam Burgos MD
Impression:
Symptomatic Paroxysmal complete heart block
near syncope
PVC's/NSVT
HLD
Breast cancer prior b/l mastectomy 2008, chemo/XRT
recurrent L neck cancer 2013 XRT
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
Anxiety
LDD
Morbid Obesity
Plan:
post DC PPM Medtronic 06/01, mild inc pain
site stable
tele occasionally Apaced
CXR no PTX, leads in position
PVC's will initiate Toprol 25mg daily
HTN - continue amlodipine, monitor bp at home with metoprolol
Activity restrictions reviewed
inc check 1 week
home today
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
Subjective
Date of Service: June 02, 2024
mild inc pain some relief with tylenol, no cp, sob
Objective
Labs:
06/02/24 03:25
06/02/24 03:25
Labs
Hgb 12.8 g/dL (12.0-16.0) 06/02/24 03:25
Hct 37.4 % (37.0-47.0) 06/02/24 03:25
Plt Count 218 10^3/uL (130-400) 06/02/24 03:25
Sodium 144 mmol/L (135-145) 06/02/24 03:25
Potassium 4.7 mmol/L (3.5-5.1) 06/02/24 03:25
BUN 16 mg/dl (7-17) 06/02/24 03:25
Creatinine 0.9 mg/dL (0.6-1.0) 06/02/24 03:25
Glucose 96 mg/dl (70-99) 06/02/24 03:25
Vital Signs and I&O:
Vital Signs
Temp Pulse Resp BP Pulse Ox
98.6 F 67 18 139/85 99
06/02/24 06:50 06/02/24 08:30 06/02/24 06:50 06/02/24 06:47 06/02/24 06:50
Vital Signs
Temp Pulse Resp BP Pulse Ox
98.6 F 67 18 139/85 99
06/02/24 06:50 06/02/24 08:30 06/02/24 06:50 06/02/24 06:47 06/02/24 06:50
Intake & Output
05/31/24 06/01/24 06/02/24 06/03/24
06:59 06:59 06:59 06:59
Intake Total 1200 / 1200
Balance 1200 / 1200
Physical Exam
Physical Exam
NAD< AOX3
S1, S2, RRR
CTAB, non labored
SNTND bsx4
L CW Aquacel dressing c/d/i no HT
[2024-06-02 09:38] VITALS: BP 145/75
--- NOTE | 2024-06-02 10:12 | CM ---
CM following for DC planning needs.
Pt. for DC today.
There are no identified DC needs. Pt. is indep. prior to admission w/ ADLs, mobility without the use of any assisted device.
Plan is for home, no needs.
--- NOTE | 2024-06-02 10:59 | W.DS.TRANS ---
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
-
Discharge Instructions:
Discharge Diagnosis/Procedures Pacemaker implant
Diet Regular
Driving Restrictions No driving for 1 week
Bathing Restrictions OK to Shower
Instructions:
Stand-Alone Forms: DC Inst - Implanted Device
Changes to Home Medications: Yes
Discharge Medications:
DC Medications w/original date entered in [email or web address]
acetaminophen 325 mg tablet (Tylenol) 650 mg PO Q6H PRN pain 06/01/24
amlodipine 5 mg tablet 5 mg PO DAILY 06/01/24
cholecalciferol (vitamin D3) 125 mcg (5,000 unit) tablet (Vitamin D3) 125 mcg PO WEEKLY 06/01/24
gabapentin 100 mg capsule 200 mg PO HS 06/01/24
ibuprofen 200 mg tablet (Advil) 600 mg PO BID 06/01/24
melatonin 10 mg tablet 10 mg PO HS 06/01/24
metoprolol succinate 25 mg tablet,extended release 24 hr 25 mg PO DAILY #90 tabs 06/02/24
Home Medication Changes
new to metoprolol
Pending Results: No
== END 2024-06-02 09:52 | disposition home or self-care (01) ==
LOC: CATH 09:27
PROVIDERS: Nurse Practitioner Adult Health; ATTENDING PHYSICIAN Internal Medicine Cardiovascular Disease; FAMILY PHYSICIAN Internal Medicine; OTHER PHYSICIAN Internal Medicine Cardiovascular Disease
DX: I44.2 Atrioventricular block, complete (principal); R55 Syncope and collapse; E78.5 Hyperlipidemia, unspecified; I47.10 Supraventricular tachycardia, unspecified; Z85.3 Personal history of malignant neoplasm of breast; Z92.3 Personal history of irradiation; Z92.21 Personal history of antineoplastic chemotherapy; Z90.13 Acquired absence of bilateral breasts and nipples; G62.9 Polyneuropathy, unspecified; F41.9 Anxiety disorder, unspecified; E66.01 Morbid (severe) obesity due to excess calories; Z68.41 Body mass index [BMI] 40.0-44.9, adult; I10 Essential (primary) hypertension
CPT/HCPCS: 33208; 71045; 80048; 83735; 85027; 93005; C1785; C1892; C1898; Q9967

== ENCOUNTER → 2024-07-18 09:24 | Outpatient (REF) | payer BC, SELFPAY ==
[2024-07-18 10:42] LABS: ALT (SGPT) 20 U/L (0-35); AST (SGOT) 21 U/L (14-36); Albumin 4.3 g/dl (3.5-5.0); Alkaline Phosphatase 55 U/L (38-126); Direct Bilirubin 0.1 mg/dl (0.0-0.4); Total Bilirubin 0.4 mg/dl (0.2-1.3); Total Protein 6.8 g/dl (6.3-8.2)
[2024-07-19 23:57] LABS: CA 27-29 9.2 U/mL (<=39.0)
== END ==
LOC: REG 09:24
PROVIDERS: ATTENDING PHYSICIAN Internal Medicine Hematology & Oncology; FAMILY PHYSICIAN Internal Medicine
DX: C50.212 Malignant neoplasm of upper-inner quadrant of left female breast (principal)
CPT/HCPCS: 36415; 80076; 86300

== ENCOUNTER 2024-07-26 14:08 | Outpatient (RCR) | payer BC, SELFPAY | END 2024-07-26 23:59 | disposition home or self-care (01) | LOC: RPT 14:08 | PROVIDERS: ATTENDING PHYSICIAN Physician Assistant Surgical; FAMILY PHYSICIAN Internal Medicine | DX: M54.12 Radiculopathy, cervical region (principal); Z73.6 Limitation of activities due to disability | CPT/HCPCS: 97112; 97161 ==

== ENCOUNTER 2024-08-26 12:55 | Outpatient (RCR) | payer BC, SELFPAY | END 2024-08-26 23:59 | disposition home or self-care (01) | LOC: RPT 12:55 | PROVIDERS: ATTENDING PHYSICIAN Physician Assistant Surgical; FAMILY PHYSICIAN Internal Medicine | DX: M54.12 Radiculopathy, cervical region (principal); Z73.6 Limitation of activities due to disability | CPT/HCPCS: 97010; 97110; 97112; 97140; 97161; 97530 ==

== ENCOUNTER 2024-09-02 15:10 | Outpatient (RCR) | payer BC, SELFPAY | END 2024-09-06 07:38 | disposition home or self-care (01) | LOC: RPT 15:10 | PROVIDERS: ATTENDING PHYSICIAN Physician Assistant Surgical; FAMILY PHYSICIAN Internal Medicine | DX: M54.12 Radiculopathy, cervical region (principal); Z73.6 Limitation of activities due to disability | CPT/HCPCS: 97110; 97530 ==

== ENCOUNTER 2024-10-04 06:21 | Day surgery (SDC) | payer BC, SELFPAY | END 2024-10-04 11:46 | disposition home or self-care (01) | LOC: GI 06:21 | PROVIDERS: ATTENDING PHYSICIAN Internal Medicine Gastroenterology | DX: R13.14 Dysphagia, pharyngoesophageal phase (principal); R12 Heartburn; K31.7 Polyp of stomach and duodenum; K22.89 Other specified disease of esophagus | CPT/HCPCS: 43239; 88305 ==

== ENCOUNTER → 2024-12-05 13:35 | Outpatient (REF) | payer BC, SELFPAY | LOC: MRI 13:35 | PROVIDERS: ATTENDING PHYSICIAN Anesthesiology Pain Medicine; FAMILY PHYSICIAN Internal Medicine | DX: M54.16 Radiculopathy, lumbar region (principal) | CPT/HCPCS: 72148 ==

== ENCOUNTER → 2025-01-03 09:14 | Outpatient (REF) | payer BC, SELFPAY ==
[2025-01-03 10:44] LABS: HDL Cholesterol 71 mg/dl; LDL Cholesterol, Calculated 177 mg/dl; Total Cholesterol 268 mg/dl (50-199); Triglyceride 103 mg/dl (10-149); Very Low Density Lipoprotein 20 mg/dl (0-30)
== END ==
LOC: REG 09:14
PROVIDERS: ATTENDING PHYSICIAN Internal Medicine Cardiovascular Disease; FAMILY PHYSICIAN Internal Medicine
DX: E78.00 Pure hypercholesterolemia, unspecified (principal)
CPT/HCPCS: 36415; 80061

== ENCOUNTER → 2025-04-04 11:23 | Outpatient (REF) | payer BC, SELFPAY ==
[2025-04-04 12:04] LABS: Hematocrit 40.3 % (37.0-47.0); Hemoglobin 13.1 g/dL (12.0-16.0); Mean Corp Hgb Conc. 32.5 g/dL (33.0-37.0); Mean Corpuscular Volume 89.2 fL (81.0-99.0); Nucleated Red Blood Cells % 0 %; Platelet Count 187 10^3/uL (130-400); Red Cell Dist. Width 13.8 % (11.5-14.5)
[2025-04-04 12:45] LABS: C-Reactive Protein 7.60 mg/L (0.0-10.00)
[2025-04-04 12:47] LABS: ALT (SGPT) 15 U/L (0-35); AST (SGOT) 17 U/L (14-36); Albumin 4.4 g/dl (3.5-5.0); Alkaline Phosphatase 39 U/L (38-126); Blood Urea Nitrogen 27 mg/dl (7-17); Calcium 9.5 mg/dl (8.4-10.2); Carbon Dioxide 24 mmol/L (22-30); Chloride 109 mmol/L (98-107); Glucose 90 mg/dl (70-99); HDL Cholesterol 67 mg/dl; LDL Cholesterol, Calculated 99 mg/dl; Potassium 4.4 mmol/L (3.5-5.1); Sodium 140 mmol/L (135-145); Total Protein 6.9 g/dl (6.3-8.2); Very Low Density Lipoprotein 22 mg/dl (0-30); eGFR > 60.00
[2025-04-06 14:14] LABS: Rheumatoid Agglutinin Less Than 10 IU (<10 IU)
[2025-04-07 12:32] LABS: ANA, IgG Reflex to HEp-2 None Detected (None Detected)
== END ==
LOC: REG 11:23
PROVIDERS: ATTENDING PHYSICIAN Internal Medicine
DX: E04.1 Nontoxic single thyroid nodule (principal); E78.00 Pure hypercholesterolemia, unspecified; Z00.00 Encounter for general adult medical examination without abnormal findings
CPT/HCPCS: 36415; 80053; 80061; 84443; 85025; 85652; 86038; 86140; 86430

== ENCOUNTER → 2025-06-09 12:55 | Outpatient (REF) | payer BC, SELFPAY | LOC: RAD 12:55 | PROVIDERS: ATTENDING PHYSICIAN Internal Medicine | DX: E04.1 Nontoxic single thyroid nodule (principal) | CPT/HCPCS: 76536 ==

== ENCOUNTER → 2025-07-18 11:39 | Outpatient (REF) | payer BC, SELFPAY ==
[2025-07-18 14:05] LABS: Hematocrit 39.1 % (37.0-47.0); Hemoglobin 13.3 g/dL (12.0-16.0); Mean Corp Hgb Conc. 34.0 g/dL (33.0-37.0); Mean Corpuscular Volume 88.9 fL (81.0-99.0); Nucleated Red Blood Cells % 0 %; Platelet Count 203 10^3/uL (130-400); Red Cell Dist. Width 12.5 % (11.5-14.5)
[2025-07-18 14:35] LABS: ALT (SGPT) 28 U/L (0-35); AST (SGOT) 27 U/L (14-36); Albumin 4.3 g/dl (3.5-5.0); Alkaline Phosphatase 53 U/L (38-126); Blood Urea Nitrogen 17 mg/dl (7-17); Calcium 9.7 mg/dl (8.4-10.2); Carbon Dioxide 27 mmol/L (22-30); Chloride 106 mmol/L (98-107); Glucose 86 mg/dl (70-99); Potassium 4.3 mmol/L (3.5-5.1); Sodium 137 mmol/L (135-145); Total Protein 6.8 g/dl (6.3-8.2); eGFR > 60.00
[2025-07-21 07:08] LABS: Magnesium, RBC's Result 5.4 mg/dL (3.6-7.5)
== END ==
LOC: REG 11:39
PROVIDERS: ATTENDING PHYSICIAN Internal Medicine Hematology & Oncology; FAMILY PHYSICIAN Internal Medicine
DX: E66.01 Morbid (severe) obesity due to excess calories (principal); Z68.41 Body mass index [BMI] 40.0-44.9, adult; G44.209 Tension-type headache, unspecified, not intractable; C50.212 Malignant neoplasm of upper-inner quadrant of left female breast
CPT/HCPCS: 36415; 80053; 82248; 83735; 84443; 85025

== ENCOUNTER 2025-07-25 09:22 | Outpatient (RCR) | payer BC, SELFPAY | END 2025-07-25 23:59 | disposition home or self-care (01) | LOC: RPT 09:22 | PROVIDERS: ATTENDING PHYSICIAN Psychiatry & Neurology Neurology; FAMILY PHYSICIAN Internal Medicine | DX: M62.838 Other muscle spasm (principal); Z73.6 Limitation of activities due to disability; M54.2 Cervicalgia; M25.512 Pain in left shoulder; M25.511 Pain in right shoulder; M62.81 Muscle weakness (generalized) | CPT/HCPCS: 97110; 97112; 97140; 97161; 97530 ==

== ENCOUNTER → 2025-08-15 09:42 | Outpatient (REF) | payer OTHER, SELFPAY | LOC: REG 09:42 | PROVIDERS: ATTENDING PHYSICIAN Internal Medicine Critical Care Medicine; FAMILY PHYSICIAN Internal Medicine | DX: R06.02 Shortness of breath (principal) | CPT/HCPCS: 71046 ==

== ENCOUNTER → 2025-08-22 14:02 | Outpatient (REF) | payer OTHER, SELFPAY | LOC: HWRCS 14:02 | PROVIDERS: ATTENDING PHYSICIAN Internal Medicine Critical Care Medicine; FAMILY PHYSICIAN Internal Medicine | DX: R06.02 Shortness of breath (principal) | CPT/HCPCS: 93306 ==